=== PATIENT | male | born 1985 | race Caucasian/White ===

== ENCOUNTER 2022-12-17 10:43 | Emergency (ER) | payer OTHER ==
[~2022-12-17] VITALS: Ht 190.5 cm; Wt 89.8 kg
[2022-12-17] MEDS ORDERED: HYDROCODONE-AC1 EAC1 PO (11:21)
[2022-12-17] MEDS ORDERED: CLEOCIN HCL150 MG PO (11:21)
[2022-12-17] MEDS ORDERED: Motrin,Rufen800 MG PO (11:21)
== END 2022-12-17 11:33 | disposition home or self-care (01) ==
LOC: ED 10:43
DX: K04.7 Periapical abscess without sinus (principal); Z88.0 Allergy status to penicillin; Z88.1 Allergy status to other antibiotic agents; Z91.040 Latex allergy status; Z88.8 Allergy status to other drugs, medicaments and biological substances; Z90.89 Acquired absence of other organs; Z98.890 Other specified postprocedural states